=== PATIENT | male | born 1975 | race Caucasian/White ===

== ENCOUNTER 2017-10-04 12:29 | Emergency (ER) | payer MEDICAID ==
[2017-10-04 12:40] VITALS: TEMP 97.9
[2017-10-04] MEDS ORDERED: IBUPROFEN 600 MG TAB PO ONE (13:10)
--- NOTE | 2017-10-04 13:11 | EDPHY ---
H & P Time Seen by Provider: 10/04/17 12:59 HPI/ROS: CHIEF COMPLAINT: Left rib pain History by patient HISTORY OF PRESENT ILLNESS: 42-year-old smoker with no past medical history presents complaining of acute onset of left lower rib pain after coughing very hard this morning. 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 Pain is somewhat pleuritic: Nature but he denies any shortness of breath. He has a little bit of persistent cough. He does not feel like he has had a recent cough or illness. There has been no fever chills. There is no direct trauma to his side. Pain is worse when he tries to twist or move. He has not taken anything for it. REVIEW OF SYSTEMS: As in HPI, and all other systems reviewed and are negative Smoking Status: Heavy smoker Physical Exam: General Appearance: Alert, uncomfortable appearing. Head: normocephalic, atraumatic Eyes: Pupils equal and round, reactive to light, no pallor or injection. Mouth: Mucous membranes moist. Respiratory: Normal, effort, lungs are clear to auscultation. No wheezes, rales or rhonchi. Left lower chest wall tenderness in the area of his mid axillary line and lowest ribs, no step-off or crepitus Cardiovascular: Regular rate and rhythm. S1, S2, no murmurs, gallops or rubs appreciated Gastrointestinal: Abdomen is soft and nontender, no masses, bowel sounds normal. Back: No CVA tenderness, no bony tenderness Neurological: Awake, alert and oriented x 3, no pronator drift, normal gait, no pronator drift Skin: Warm and dry, no rashes. Musculoskeletal: No deformities or tenderness. Extremities: full range of motion, no edema, no tenderness, DP2+ bilat Psychiatric: Patient has normal affect, there is no agitation. Constitutional: Initial Vital Signs Temperature (C) 36.6 C 10/04/17 12:36 Heart Rate 84 10/04/17 12:36 Respiratory Rate 20 10/04/17 12:36 Blood Pressure 141/101 H 10/04/17 12:36 O2 Sat (%) 94 10/04/17 12:36 O2 Delivery Mode Room Air Allergies/Adverse Reactions: phenobarbital Allergy (Verified 10/04/17 12:40) Home Medications: Medication Instructions Recorded Hydrocodone/APAP 5/325 [[place] 1 - 2 tab PO Q4H PRN #6 tab 10/04/17 5/325 (*)] Lidocaine 5% [Lidoderm 5% Patch 1 ea TD DAILY #30 patch 10/04/17 (*)] MDM/Departure - MDM Imaging Results: Imaging Impressions Chest X-Ray 10/04/17 13:08 Impression: Normal chest x-ray. Medications Given: Discontinued Medications Ibuprofen (Motrin) 600 mg PO EDNOW ONE Stop: 10/04/17 13:11 Last Admin: 10/04/17 13:13 Dose: 600 mg ED Course/Re-evaluation: 42-year-old man presents with left-sided rib pain and tenderness after coughing hard this morning. There is no evidence of hypoxia. Patient is markedly tender. Chest x-ray shows no evidence of pneumothorax. Patient was given ibuprofen with some improvement. We discussed return precautions. Patient was given prescription for topical lidocaine and [place] for pain. - Depart Disposition: Home, Routine, Self-Care Clinical Impression: Rib pain on left side Condition: Good Instructions: Chest Wall Pain (ED) Additional Instructions: You were seen by Dr. Tahmina Mas today. Take ibuprofen 600 mg 4 times a day as needed for pain and if needed add Tylenol 1000 mg 4 times a day if needed. Also use topical lidocaine patches. Stop smoking! Return immediately if he develops any fever, productive cough or other new symptoms. Return for any worsening or new concerns. Stand Alone Forms: Work Excuse Prescriptions: Hydrocodone/APAP 5/325 [[place] 5/325 (*)] 1 - 2 tab PO Q4H PRN #6 tab PRN Reason: Pain, Moderate Lidocaine 5% [Lidoderm 5% Patch (*)] 1 ea TD DAILY #30 patch Referrals: [facility],ATILIOA [Other] - As per Instructions
[2017-10-04 14:51] VITALS: BP 142/99; PULSE 76; RESP 16; O2SAT 97
== END 2017-10-04 14:51 | disposition home or self-care (01) ==
LOC: CED 12:29
DX: R07.81 Pleurodynia (principal); F17.200 Nicotine dependence, unspecified, uncomplicated
CPT/HCPCS: 71020-PO

== ENCOUNTER 2018-06-24 09:13 | Emergency (ER) | payer MEDICAID ==
[2018-06-24] MEDS ORDERED: CARBAMIDE PEROXIDE 15 ML OTIC.BTL ONE (09:21)
[2018-06-24] MEDS ORDERED: IBUPROFEN 600 MG TAB PO ONE (09:21)
--- NOTE | 2018-06-24 09:30 | EDPHY ---
H & P Time Seen by Provider: 06/24/18 09:14 HPI/ROS: CHIEF COMPLAINT: Left ear pain HISTORY OF PRESENT ILLNESS: 42-year-old gentleman presents emergency department reporting 1-2 week history of gradually worsening left ear pain. Patient reports that pops and crackles. He has had increasing discomfort in the ear. No drainage. No fevers, chills, cold symptoms, runny nose, upper respiratory symptoms, trauma, travel via airplane, or travel to altitude. Reports a similar episode occurring several years ago. At that time the patient had significant ear wax which was removed. REVIEW OF SYSTEMS: Aside from elements discussed in the HPI, a comprehensive 10-point review of systems was reviewed and is negative. PAST MEDICAL HISTORY: Patient denies. No issues with sinusitis, or seasonal allergies. SOCIAL HISTORY: Smoker. . VITAL SIGNS: see nurse's notes. GENERAL: Well-developed, well-nourished, in no acute distress. HEENT: Atraumatic Eyes: PERRL, EOMI, no conjunctival injection. Ears: Right ear: External auditory canal is clear, TM clear, normal color, no retractions. Left ear: External auditory canal appears normal. Significant cerumen is impacted against the tympanic membrane. Tympanic membrane is not visible. Small amount of wax was manually removed with a curette but was quite uncomfortable for the patient. Nose: No discharge. Mouth: moist mucous membranes. Pharynx: no erythema, no exudates, no swelling, no abscess. Uvula is midline. NECK: Supple, no adenopathy, no meningismus, no tenderness. NEURO: Alert and oriented, grossly nonfocal. PSYCHIATRIC: Normal mentation, no agitation. Smoking Status: Heavy smoker Constitutional: Initial Vital Signs Temperature (C) 36.6 C 06/24/18 09:19 Heart Rate 78 06/24/18 09:19 Respiratory Rate 18 06/24/18 09:19 Blood Pressure 122/119 H 06/24/18 09:19 O2 Sat (%) 96 06/24/18 09:19 O2 Delivery Mode Room Air Allergies/Adverse Reactions: phenobarbital Allergy (Verified 10/04/17 12:40) MDM/Departure - MDM Medications Given: Discontinued Medications Neomycin/Polymyxin/Hydrocortisone (Cortisporin Otic Suspension) 3 drops LEFTEAR EDNOW ONE Stop: 06/24/18 10:06 Last Admin: 06/24/18 10:15 Dose: 1 btl ED Course/Re-evaluation: Ear wax removal drops were instilled by the nursing staff. Ear was irrigated. On re-examination, approximately half of the wax is been irrigated. Tympanic membrane is partially visible, normal in color. External auditory canal does have some edema and irritation noted. Patient was instructed to continue using the ear wax removal drops 2 times a day and to begin using Cortisporin otic suspension several times a day as well to help treat mild otitis externa. Differential Diagnosis: Differential diagnosis for the patient's primary complaint was considered including but not limited to otitis media, otitis externa, foreign body, impacted cerumen, perforated tympanic membrane. - Depart Disposition: Home, Routine, Self-Care Clinical Impression: Left ear pain, Impacted cerumen of left ear Condition: Good Instructions: Otitis Externa (ED), Cerumen Impaction (ED) Additional Instructions: 1. To help remove the remaining wax in your ear, I suggest you use ear wax removal drops 2 times a day. Use as directed on the bottle. 2. Please use the Cortisporin otic suspension 3 to 4 times a day. I suggested you wait about an hour after using the ear wax removal drops before you instill the Cortisporin ear drops. 3. Take Tylenol or ibuprofen for pain. 4. Please follow up with [facility] as directed below. When you call for an appointment be sure they are aware that this is an emergency department follow-up visit. Be seen in the next several days if your ear pain is worsening despite the above treatment. Otherwise, follow up as needed if you have ongoing ear problems Referrals: DAVIDSON BALBUENA [Other] - As per Instructions Lisa Hair MD [Medical Doctor] - As per Instructions (Follow up with [facility] as needed. Be seen if your ear pain is worsening despite the above treatment. Otherwise, follow up as needed if you have ongoing ear problems.)
[2018-06-24] MEDS ORDERED: NEOMYCIN/POLYMYX B/HC SUSP 10 ML OTIC.BTL LEFTEAR ONE (10:05)
[2018-06-24 10:22] VITALS: BP 142/92
== END 2018-06-24 10:17 | disposition home or self-care (01) ==
LOC: CED 09:13
PROC: 3E1B78Z Irrigation of Ear using Irrigating Substance, Via Natural or Artificial Opening (ICD-10-PCS; principal; 2018-06-24)
DX: H61.22 Impacted cerumen, left ear (principal); F17.200 Nicotine dependence, unspecified, uncomplicated